=== PATIENT | female | born 1960 | race Caucasian/White ===

== ENCOUNTER 2024-09-20 10:48 | Inpatient (IN) | payer OTHER, MEDICARE ==
[~2024-09-20] VITALS: Ht 167.6 cm; Wt 100.8 kg
[2024-09-20] VITALS (22 sets, daily range): BP systolic 135–170; BP diastolic 60–94; PULSE 105–117; RESP 18–30; TEMP 95.3–99; O2SAT 96–100
[2024-09-20 11:44] LABS: BASOPHILS # (AUTO) 0.2 (0.0-0.1); BASOPHILS % 1.2 % (0.0-1.0); EOSINOPHILS % 0.1 % (0.0-6.0); HEMATOCRIT 50.9 % (34.2-44.1); LYMPHOCYTES # (AUTO) 3.6 (1.0-3.2); LYMPHOCYTES % 22.4 % (18.0-39.1); MEAN CORPUSCULAR HEMOGLOBIN 32.7 pg (28-32); MEAN CORPUSCULAR HGB CONC 31.4 g/dL (31-35); MEAN CORPUSCULAR VOLUME 104.1 fL (81-99); MONOCYTES # (AUTO) 0.8 (0.2-0.8); MONOCYTES % 4.7 % (4.4-11.3); NEUTROPHILS # (AUTO) 10.4 (2.1-6.9); PLATELET COUNT 363 x10e3/uL (140-360); RED BLOOD COUNT 4.89 x10e6/uL (3.6-5.1); RED CELL DISTRIBUTION WIDTH 12.1 % (11.7-14.4); WHITE BLOOD COUNT 15.97 x10e3/uL (4.8-10.8)
[2024-09-20 12:24] LABS: CORONAVIRUS COVID-19 AG NEGATIVE (NEGATIVE); INFLUENZA A AG NEGATIVE (NEGATIVE); INFLUENZA B AG NEGATIVE (NEGATIVE)
[2024-09-20] MEDS: LACTATED RINGER'S 1,000 ML INJ ONE ×2 (12:32→13:04)
[2024-09-20 12:44] LABS: ALANINE AMINOTRANSFERASE 17 IU/L (0-55); ALBUMIN 3.8 g/dL (3.5-5.0); ALBUMIN/GLOBULIN RATIO 1.1 (0.8-2.0); ALKALINE PHOSPHATASE 162 IU/L (40-150); BILIRUBIN,TOTAL 0.2 mg/dL (0.2-1.2); BLOOD UREA NITROGEN 24 mg/dL (7-26); BUN/CREATININE RATIO 13 (6-25); CALCIUM 9.2 mg/dL (8.4-10.2); CHLORIDE 103 mmol/L (98-107); CREATININE, SERUM 1.79 mg/dL (0.57-1.11); EST GLOMERULAR FILTRATION RATE 31 ML/MIN (>=60); POTASSIUM 4.8 mmol/L (3.5-5.1); SODIUM 132 mmol/L (136-145); TOTAL PROTEIN 7.4 g/dL (6.5-8.1)
[2024-09-20 12:48] LABS: ANION GAP 28.8 mmol/L (8-16)
[2024-09-20 12:49] LABS: CARBON DIOXIDE < 5 mmol/L (22-29); GLUCOSE 614 mg/dL (74-118)
[2024-09-20] MEDS ORDERED: MAGNESIUM SULF 1GRAM/DEXTROSE 100 ML IV PRN (13:00)
[2024-09-20] MEDS: DEXTROSE 5%/0.45% SOD CHL 1,000 ML IV SCH (13:00)
[2024-09-20 13:01] LABS: ABG PCO2 10 mmHg (35-45); ABG PH 6.92 (7.35-7.45)
[2024-09-20 13:02] LABS: ABG HCO3 2 mmol/L (22-26); ABG PO2 142 mmHg (80-105); ABG TCO2 5
[2024-09-20] MEDS: INSULIN REGULAR, HUMAN 100 UNIT/1 ML IV ONE (13:03)
[2024-09-20] MEDS: CEFEPIME 2 GM in SODIUM CHLORIDE 0.9% 100 ML IV SCH (13:04)
[2024-09-20 13:30] LABS: CLARITY,URINE CLOUDY (CLEAR); COLOR,URINE YELLOW (YELLOW); LEUKOCYTE ESTERASE ,URINE TRACE (NEGATIVE); PH,URINE 5 (5 - 7)
[2024-09-20 13:31] LABS: BILIRUBIN,URINE SMALL (NEGATIVE); GLUCOSE, URINE 500 (NEGATIVE); KETONES,URINE >=160 (NEGATIVE); NITRITE,URINE NEGATIVE (NEGATIVE); PROTEIN,URINE DIPSTICK 2+ (NEGATIVE); URINE UROBILINOGEN 0.2 mg/dL (0.2 - 1)
[2024-09-20] MEDS: SODIUM CHLORIDE 0.9% 1000ML 1,000 ML IV SCH (13:35)
[2024-09-20] MEDS: SODIUM BICARBONATE 8.4% INJ 50 ML SYR IV STA (13:35)
[2024-09-20] MEDS: INSULIN REGULAR, HUMAN 3ML VL 100 UNIT in SODIUM CHLORIDE 0.9% 99 ML IV SCH (13:36)
[2024-09-20 13:41] LABS: BACTERIA,URINE FEW /HPF; EPITHELIAL CELLS,URINE MODERATE /LPF
[2024-09-20 13:42] LABS: YEAST,URINE MODERATE
[2024-09-20 15:11] LABS: BLOOD UREA NITROGEN 24 mg/dL (7-26); BUN/CREATININE RATIO 15 (6-25); CHLORIDE 105 mmol/L (98-107); CREATININE, SERUM 1.55 mg/dL (0.57-1.11); EST GLOMERULAR FILTRATION RATE 37 ML/MIN (>=60); POTASSIUM 4.1 mmol/L (3.5-5.1); SODIUM 137 mmol/L (136-145)
[2024-09-20 15:15] LABS: ANION GAP 31.1 mmol/L (8-16)
[2024-09-20 15:16] LABS: CARBON DIOXIDE < 5 mmol/L (22-29); GLUCOSE 501 mg/dL (74-118)
[2024-09-20 15:25] LABS: ABG HCO3 3 mmol/L (22-26); ABG PCO2 11 mmHg (35-45); ABG PH 6.97 (7.35-7.45); ABG PO2 145 mmHg (80-105); ABG TCO2 < 5
[2024-09-20 15:52] LABS: FREE T4 (FREE THYROXINE) 0.81 ng/dL (0.8-1.8); THYROID STIMULATING HORMONE 0.829 uIU/mL (0.350-4.940)
[2024-09-20] MEDS: POTASSIUM CHLORIDE 10MEQ/100ML 100 ML IV SCH (17:07)
[2024-09-20 21:03] LABS: ANION GAP 22.5 mmol/L (8-16); CALCIUM 8.8 mg/dL (8.4-10.2); CREATININE, SERUM 1.47 mg/dL (0.57-1.11); POTASSIUM 3.5 mmol/L (3.5-5.1)
[2024-09-20 21:16] LABS: ABG HCO3 6 mmol/L (22-26); ABG PCO2 16 mmHg (35-45); ABG PH 7.18 (7.35-7.45); ABG PO2 98 mmHg (80-105); ABG TCO2 7
[2024-09-20] MEDS: POTASSIUM CHLORIDE 20MEQ/100ML 100 ML IV ONE (21:42)
[2024-09-20] MEDS: HEPARIN SOD (PORCINE) 5,000 UNIT/ML VIAL SC SCH (21:43)
[2024-09-20] MEDS: ONDANSETRON HCL INJ 2MG/ML 2ML 2 MG/ML VIAL IV PRN (23:52)
[2024-09-21] VITALS (56 sets, daily range): BP systolic 106–167; BP diastolic 53–93; PULSE 80–164; RESP 14–28; TEMP 98.3–99.6; O2SAT 90–100
[2024-09-21] MEDS: MAGNESIUM SULFATE 2GM/50ML 50 ML IV ONE (00:45)
[2024-09-21] MEDS: POTASSIUM CHLORIDE 20MEQ/100ML 100 ML IV ONE ×2 (01:15→04:35)
[2024-09-21 01:27] LABS: ANION GAP 19.4 mmol/L (8-16); CREATININE, SERUM 1.36 mg/dL (0.57-1.11)
[2024-09-21 01:36] LABS: POTASSIUM 3.4 mmol/L (3.5-5.1)
[2024-09-21 04:33] LABS: ANION GAP 13.3 mmol/L (8-16); CALCIUM 8.4 mg/dL (8.4-10.2); CREATININE, SERUM 1.16 mg/dL (0.57-1.11); MAGNESIUM 2.4 MG/DL (1.3-2.1)
[2024-09-21] MEDS: METOPROLOL TARTRATE INJ 1 MG/ML VIAL IV ONE ×2 (04:38→05:29)
[2024-09-21 04:39] LABS: POTASSIUM 3.3 mmol/L (3.5-5.1)
[2024-09-21 06:23] LABS: BASOPHILS % 0.2 % (0.0-1.0); HEMATOCRIT 42.3 % (34.2-44.1); HEMOGLOBIN 14.5 g/dL (12.0-16.0); LYMPHOCYTES # (AUTO) 1.7 (1.0-3.2); MEAN CORPUSCULAR HGB CONC 34.3 g/dL (31-35); MEAN CORPUSCULAR VOLUME 96.4 fL (81-99); MONOCYTES # (AUTO) 1.7 (0.2-0.8); NEUTROPHILS # (AUTO) 10.5 (2.1-6.9); NEUTROPHILS % 74.8 % (38.7-80.0); PLATELET COUNT 252 x10e3/uL (140-360); RED BLOOD COUNT 4.39 x10e6/uL (3.6-5.1); RED CELL DISTRIBUTION WIDTH 11.8 % (11.7-14.4); WHITE BLOOD COUNT 14.11 x10e3/uL (4.8-10.8)
[2024-09-21 06:52] LABS: ANION GAP 11.4 mmol/L (8-16); CALCIUM 8.4 mg/dL (8.4-10.2); CREATININE, SERUM 1.09 mg/dL (0.57-1.11); MAGNESIUM 2.3 MG/DL (1.3-2.1)
[2024-09-21 06:55] LABS: POTASSIUM 3.4 mmol/L (3.5-5.1)
[2024-09-21] MEDS ORDERED: METOPROLOL TARTRATE 25 MG TAB PO SCH (07:30)
[2024-09-21] MEDS: INSULIN REGULAR, HUMAN 3ML VL 100 UNIT in SODIUM CHLORIDE 0.9% 99 ML IV SCH (08:13)
[2024-09-21] MEDS: POTASSIUM PHOSPHATE 40 MM in SODIUM CHLORIDE 0.9% 500ML 500 ML IV ONE (08:29)
[2024-09-21] MEDS: POTASSIUM CHLORIDE 20MEQ/100ML 100 ML IV SCH (08:46)
[2024-09-21] MEDS ORDERED: INSULIN GLARGINE 100 UNITS/ML VIAL SQ SCH (09:00)
[2024-09-21] MEDS: HYDRALAZINE HCL 20 MG/ML VIAL IV PRN (12:34)
[2024-09-21 18:15] LABS: ANION GAP 12.6 mmol/L (8-16); CALCIUM 8.1 mg/dL (8.4-10.2); CREATININE, SERUM 0.92 mg/dL (0.57-1.11); MAGNESIUM 1.9 MG/DL (1.3-2.1); POTASSIUM 3.6 mmol/L (3.5-5.1)
[2024-09-21] MEDS ORDERED: IOPAMIDOL 370 MG/ML 100 ML INFUS..BTL INJ ONE (19:25)
[2024-09-21 20:25] LABS: BILIRUBIN,URINE NEGATIVE (NEGATIVE); CLARITY,URINE TURBID (CLEAR); COLOR,URINE RED (YELLOW); GLUCOSE, URINE 1+ (NEGATIVE); KETONES,URINE TRACE (NEGATIVE); LEUKOCYTE ESTERASE ,URINE SMALL (NEGATIVE); NITRITE,URINE NEGATIVE (NEGATIVE); PH,URINE 6 (5 - 7); PROTEIN,URINE DIPSTICK 2+ (NEGATIVE); URINE UROBILINOGEN 0.2 mg/dL (0.2 - 1)
[2024-09-21 20:38] LABS: BACTERIA,URINE RARE /HPF; RBC,URINE >50 /HPF (0-5); WBC,URINE (MAN) 0-5 /HPF (0-5)
[2024-09-21] MEDS: POLYETHYLENE GLYCOL 3350 17 GM PACK PO SCH (22:11)
[2024-09-22] VITALS (43 sets, daily range): BP systolic 122–169; BP diastolic 58–79; PULSE 85–104; RESP 14–25; TEMP 98.9–100; O2SAT 91–100
[2024-09-22 06:02] LABS: BASOPHILS % 0.1 % (0.0-1.0); EOSINOPHILS % 0.1 % (0.0-6.0); HEMATOCRIT 39.9 % (34.2-44.1); HEMOGLOBIN 13.7 g/dL (12.0-16.0); LYMPHOCYTES # (AUTO) 1.4 (1.0-3.2); LYMPHOCYTES % 12.2 % (18.0-39.1); MEAN CORPUSCULAR HEMOGLOBIN 32.9 pg (28-32); MEAN CORPUSCULAR HGB CONC 34.3 g/dL (31-35); MEAN CORPUSCULAR VOLUME 95.9 fL (81-99); MONOCYTES # (AUTO) 1.2 (0.2-0.8); MONOCYTES % 10.2 % (4.4-11.3); NEUTROPHILS # (AUTO) 8.6 (2.1-6.9); NEUTROPHILS % 76.7 % (38.7-80.0); PLATELET COUNT 192 x10e3/uL (140-360); RED BLOOD COUNT 4.16 x10e6/uL (3.6-5.1); RED CELL DISTRIBUTION WIDTH 12.2 % (11.7-14.4); WHITE BLOOD COUNT 11.24 x10e3/uL (4.8-10.8)
[2024-09-22 06:41] LABS: CALCIUM 8.3 mg/dL (8.4-10.2); CREATININE, SERUM 0.79 mg/dL (0.57-1.11); MAGNESIUM 1.8 MG/DL (1.3-2.1)
[2024-09-22 06:43] LABS: ABG HCO3 6 mmol/L (22-26); ABG PCO2 16 mmHg (35-45); ABG PH 7.18 (7.35-7.45); ABG PO2 98 mmHg (80-105); ABG TCO2 7
[2024-09-22 06:43] LABS: ABG HCO3 3 mmol/L (22-26); ABG PCO2 11 mmHg (35-45); ABG PH 6.97 (7.35-7.45); ABG PO2 145 mmHg (80-105); ABG TCO2 < 5
[2024-09-22 06:43] LABS: ABG BASE EXCESS < -30.0 mmol/L (-2 - 3); ABG HCO3 2 mmol/L (22-26); ABG PCO2 10 mmHg (35-45); ABG PH 6.92 (7.35-7.45); ABG PO2 142 mmHg (80-105); ABG TCO2 < 5
[2024-09-22] MEDS: POTASSIUM CHLORIDE 20MEQ/100ML 200 ML IV PRN (06:48)
[2024-09-22] MEDS: POTASSIUM CHLORIDE 20MEQ/100ML 100 ML ONE (06:53)
[2024-09-22] MEDS: POTASSIUM CHLORIDE 20MEQ/100ML 100 ML IV SCH (07:53)
[2024-09-22] MEDS: PANTOPRAZOLE SODIUM 20 MG TABLET.DR PO SCH (10:55)
[2024-09-22] MEDS: GABAPENTIN 300 MG CAP PO SCH (10:55)
[2024-09-22] MEDS: FLUCONAZOLE 100 MG TAB PO SCH (10:55)
[2024-09-22] MEDS: INSULIN GLARGINE 100 UNITS/ML VIAL SQ SCH (10:57)
[2024-09-22 11:10] LABS: ANION GAP 14.4 mmol/L (8-16); CALCIUM 8.5 mg/dL (8.4-10.2); CREATININE, SERUM 0.78 mg/dL (0.57-1.11); MAGNESIUM 1.8 MG/DL (1.3-2.1)
[2024-09-22 11:15] LABS: POTASSIUM 3.4 mmol/L (3.5-5.1)
[2024-09-22] MEDS: METOCLOPRAMIDE HCL 10 MG/2ML VIAL IV ONE (11:26)
[2024-09-22] MEDS: MAGNESIUM SULFATE 2GM/50ML 50 ML IV ONE (12:09)
[2024-09-22 15:33] LABS: ANION GAP 9.5 mmol/L (8-16); CALCIUM 8.3 mg/dL (8.4-10.2); CREATININE, SERUM 0.69 mg/dL (0.57-1.11); MAGNESIUM 2.4 MG/DL (1.3-2.1); POTASSIUM 3.5 mmol/L (3.5-5.1)
[2024-09-22] MEDS: INSULIN REGULAR, HUMAN 3ML VL 100 UNIT in SODIUM CHLORIDE 0.9% 99 ML IV SCH (21:00)
[2024-09-23] VITALS (39 sets, daily range): BP systolic 141–158; BP diastolic 64–85; PULSE 81–103; RESP 16–27; TEMP 98.3–99.8; O2SAT 94–98
[2024-09-23 06:25] LABS: BASOPHILS % 0.3 % (0.0-1.0); EOSINOPHILS # (AUTO) 0.1 (0.0-0.4); EOSINOPHILS % 0.7 % (0.0-6.0); HEMATOCRIT 36.3 % (34.2-44.1); HEMOGLOBIN 12.1 g/dL (12.0-16.0); LYMPHOCYTES # (AUTO) 2.1 (1.0-3.2); LYMPHOCYTES % 30.3 % (18.0-39.1); MEAN CORPUSCULAR HEMOGLOBIN 32.7 pg (28-32); MEAN CORPUSCULAR HGB CONC 33.3 g/dL (31-35); MEAN CORPUSCULAR VOLUME 98.1 fL (81-99); MONOCYTES # (AUTO) 0.6 (0.2-0.8); MONOCYTES % 8.5 % (4.4-11.3); NEUTROPHILS # (AUTO) 4.2 (2.1-6.9); NEUTROPHILS % 59.3 % (38.7-80.0); PLATELET COUNT 180 x10e3/uL (140-360); RED CELL DISTRIBUTION WIDTH 12.6 % (11.7-14.4); WHITE BLOOD COUNT 7.02 x10e3/uL (4.8-10.8)
[2024-09-23 07:06] LABS: ANION GAP 7.8 mmol/L (8-16); CALCIUM 7.7 mg/dL (8.4-10.2); CREATININE, SERUM 0.73 mg/dL (0.57-1.11); MAGNESIUM 2.1 MG/DL (1.3-2.1)
[2024-09-23 07:07] LABS: POTASSIUM 2.8 mmol/L (3.5-5.1)
[2024-09-23] MEDS ORDERED: DEXTROSE 50% SYRINGE 50 ML IV PRN (07:45)
[2024-09-23] MEDS: INSULIN GLARGINE 100 UNITS/ML VIAL SQ SCH (08:43)
[2024-09-23] MEDS: POTASSIUM CHLORIDE 10MEQ EA PO ONE (09:10)
[2024-09-23] MEDS: POTASSIUM CHLORIDE 20MEQ/100ML 200 ML ONE (09:43)
[2024-09-23] MEDS: POLYETHYLENE GLYCOL 3350 17 GM PACK PO SCH (10:24)
[2024-09-23] MEDS: INSULIN REGULAR, HUMAN 100 UNIT/1 ML SQ SCH (12:02)
[2024-09-23] MEDS: POTASSIUM CHLORIDE 20MEQ/100ML 200 ML IV ONE (17:16)
[2024-09-23 19:57] LABS: ANION GAP 11.2 mmol/L (8-16); CALCIUM 8.6 mg/dL (8.4-10.2); CREATININE, SERUM 0.73 mg/dL (0.57-1.11); POTASSIUM 4.2 mmol/L (3.5-5.1)
[2024-09-23] MEDS: CRESTOR 10MG PO SCH (21:10)
[2024-09-24] VITALS (8 sets, daily range): BP systolic 131–157; BP diastolic 65–85; PULSE 85–104; RESP 18–20; TEMP 97.7–98.7; O2SAT 92–100
[2024-09-24 06:30] LABS: BASOPHILS % 0.3 % (0.0-1.0); EOSINOPHILS # (AUTO) 0.1 (0.0-0.4); EOSINOPHILS % 1.4 % (0.0-6.0); HEMATOCRIT 36.7 % (34.2-44.1); HEMOGLOBIN 12.6 g/dL (12.0-16.0); LYMPHOCYTES # (AUTO) 2.2 (1.0-3.2); LYMPHOCYTES % 30.6 % (18.0-39.1); MEAN CORPUSCULAR HEMOGLOBIN 32.8 pg (28-32); MEAN CORPUSCULAR HGB CONC 34.3 g/dL (31-35); MEAN CORPUSCULAR VOLUME 95.6 fL (81-99); MONOCYTES # (AUTO) 0.6 (0.2-0.8); MONOCYTES % 8.3 % (4.4-11.3); NEUTROPHILS # (AUTO) 4.1 (2.1-6.9); NEUTROPHILS % 57.6 % (38.7-80.0); PLATELET COUNT 190 x10e3/uL (140-360); RED BLOOD COUNT 3.84 x10e6/uL (3.6-5.1); RED CELL DISTRIBUTION WIDTH 12.8 % (11.7-14.4); WHITE BLOOD COUNT 7.13 x10e3/uL (4.8-10.8)
[2024-09-24 07:04] LABS: ALBUMIN 2.6 g/dL (3.5-5.0); ALBUMIN/GLOBULIN RATIO 1.1 (0.8-2.0); ANION GAP 12.9 mmol/L (8-16); BILIRUBIN,TOTAL 0.5 mg/dL (0.2-1.2); CALCIUM 8.7 mg/dL (8.4-10.2); CREATININE, SERUM 0.69 mg/dL (0.57-1.11); POTASSIUM 3.9 mmol/L (3.5-5.1); TOTAL PROTEIN 4.9 g/dL (6.5-8.1)
[2024-09-24] MEDS: INSULIN REGULAR, HUMAN 100 UNIT/1 ML SQ SCH (11:54)
[2024-09-24] MEDS: ENOXAPARIN SOD INJ 40 MG/0.4 ML SYR SC SCH (16:53)
[2024-09-25 03:13] VITALS: BP 157/71; PULSE 86; RESP 18; TEMP 98.3; O2SAT 95
[2024-09-25 05:42] LABS: BASOPHILS # (AUTO) 0.1 (0.0-0.1); BASOPHILS % 0.5 % (0.0-1.0); EOSINOPHILS # (AUTO) 0.1 (0.0-0.4); EOSINOPHILS % 1.4 % (0.0-6.0); HEMATOCRIT 38.5 % (34.2-44.1); HEMOGLOBIN 12.7 g/dL (12.0-16.0); LYMPHOCYTES # (AUTO) 3.3 (1.0-3.2); LYMPHOCYTES % 35.9 % (18.0-39.1); MEAN CORPUSCULAR HEMOGLOBIN 32.9 pg (28-32); MEAN CORPUSCULAR VOLUME 99.7 fL (81-99); MONOCYTES # (AUTO) 0.9 (0.2-0.8); MONOCYTES % 9.6 % (4.4-11.3); NEUTROPHILS # (AUTO) 4.5 (2.1-6.9); NEUTROPHILS % 48.5 % (38.7-80.0); PLATELET COUNT 171 x10e3/uL (140-360); RED BLOOD COUNT 3.86 x10e6/uL (3.6-5.1); RED CELL DISTRIBUTION WIDTH 12.3 % (11.7-14.4); WHITE BLOOD COUNT 9.23 x10e3/uL (4.8-10.8)
[2024-09-25 06:03] LABS: ALBUMIN 2.7 g/dL (3.5-5.0); ANION GAP 13.4 mmol/L (8-16); BILIRUBIN,TOTAL 0.4 mg/dL (0.2-1.2); CALCIUM 9.4 mg/dL (8.4-10.2); CREATININE, SERUM 0.67 mg/dL (0.57-1.11); MAGNESIUM 1.9 MG/DL (1.3-2.1); TOTAL PROTEIN 5.3 g/dL (6.5-8.1)
[2024-09-25 06:05] LABS: POTASSIUM 3.4 mmol/L (3.5-5.1)
[2024-09-25 06:41] VITALS: BP 163/76; PULSE 87; RESP 18; TEMP 97.9; O2SAT 97
[2024-09-25 07:53] VITALS: BP 163/76; PULSE 87; RESP 18; TEMP 97.9; O2SAT 97
[2024-09-25 08:44] VITALS: BP 157/81; PULSE 79; RESP 20; TEMP 98.2; O2SAT 97
[2024-09-25] MEDS ORDERED: ROSUVASTATIN CA10 MG PO (11:16)
[2024-09-25] MEDS ORDERED: PANTOPRAZOLE SO20 MG PO (11:16)
[2024-09-25] MEDS ORDERED: INSULIN PEN NE1 EAC1 SC (11:16)
[2024-09-25] MEDS ORDERED: FLUCONAZOLE200 MG PO (11:16)
[2024-09-25] MEDS ORDERED: TRESIBA FL100 UNIT/1 SC (11:16)
[2024-09-25] MEDS ORDERED: INSULIN AS100 UNIT/3 SC (11:16)
[2024-09-25 11:37] VITALS: BP_SYST 153; BP_SYST 157; BP_SYST 161; BP_DIAS 75; BP_DIAS 76
[2024-09-25] MEDS ORDERED: ONDANSETRON HCL 4 MG ORAL DISINTEGRATING TAB PO PRN (12:15)
[2024-09-25 12:20] VITALS: BP 179/76; PULSE 92; RESP 20; TEMP 98.2; O2SAT 96
== END 2024-09-25 14:54 | disposition home or self-care (01) | DRG 638 ==
LOC: ER 11:12 → ERHOLD 13:10 → ICU 13:38 → MED/SURG3 09-23 13:15
PROVIDERS: ADMIT Family Medicine Adult Medicine; ATTEND Family Medicine Adult Medicine
PROC: 4A133R1 Monitoring of Arterial Saturation, Peripheral, Percutaneous Approach (ICD-10-PCS; principal; 2024-09-20)
PROC: 02HV33Z Insertion of Infusion Device into Superior Vena Cava, Percutaneous Approach (ICD-10-PCS; 2024-09-20)
DX: E11.10 Type 2 diabetes mellitus with ketoacidosis without coma (principal); B37.49 Other urogenital candidiasis; J81.1 Chronic pulmonary edema; N17.9 Acute kidney failure, unspecified; I16.0 Hypertensive urgency; K29.80 Duodenitis without bleeding; I11.9 Hypertensive heart disease without heart failure; E86.0 Dehydration; N30.90 Cystitis, unspecified without hematuria; R55 Syncope and collapse; R09.89 Other specified symptoms and signs involving the circulatory and respiratory systems; R53.81 Other malaise; R91.1 Solitary pulmonary nodule; R00.0 Tachycardia, unspecified; Z11.52 Encounter for screening for COVID-19; E66.9 Obesity, unspecified; Z68.32 Body mass index [BMI] 32.0-32.9, adult; T38.3X6A Underdosing of insulin and oral hypoglycemic [antidiabetic] drugs, initial encounter; Z91.128 Patient's intentional underdosing of medication regimen for other reason; Z88.0 Allergy status to penicillin; Z88.1 Allergy status to other antibiotic agents
CPT/HCPCS: 36415; 36569; 36600; 51700; 70450; 71045; 71260; 74177; 80048; 80053; 80061; 81001; 82805; 82948; 83036; 83605; 83735; 83880; 84100; 84439; 84443; 84484; 85025; 87040; 87086; 93005; 94799; 96365; 96366; 99252; 99285; J0360; J0692; J1644; J1650; J1815; J2405; J3475; J3480; J7030; J7040; J7050; Q9967

== ENCOUNTER 2024-10-05 02:50 | Emergency (ER) | payer OTHER ==
[~2024-10-05] VITALS: Ht 167.6 cm; Wt 100.7 kg
[~2024-10-05 02:50] MED LIST: FLUCONAZOLE200 MG PO; INSULIN AS100 UNIT/3 SC; INSULIN PEN NE1 EAC1 SC; PANTOPRAZOLE SO20 MG PO; ROSUVASTATIN CA10 MG PO; TRESIBA FL100 UNIT/1 SC
[2024-10-05 03:03] VITALS: PULSE 87; RESP 18; TEMP 98.7
[2024-10-05 03:19] LABS: BASOPHILS # (AUTO) 0.1 (0.0-0.1); BASOPHILS % 0.9 % (0.0-1.0); EOSINOPHILS # (AUTO) 0.1 (0.0-0.4); EOSINOPHILS % 1.7 % (0.0-6.0); HEMOGLOBIN 10.5 g/dL (12.0-16.0); LYMPHOCYTES # (AUTO) 1.8 (1.0-3.2); MEAN CORPUSCULAR HEMOGLOBIN 32.2 pg (28-32); MEAN CORPUSCULAR HGB CONC 30.9 g/dL (31-35); MEAN CORPUSCULAR VOLUME 104.3 fL (81-99); MONOCYTES # (AUTO) 0.4 (0.2-0.8); MONOCYTES % 7.2 % (4.4-11.3); NEUTROPHILS # (AUTO) 3.3 (2.1-6.9); NEUTROPHILS % 57.9 % (38.7-80.0); PLATELET COUNT 291 x10e3/uL (140-360); RED BLOOD COUNT 3.26 x10e6/uL (3.6-5.1); RED CELL DISTRIBUTION WIDTH 12.1 % (11.7-14.4); WHITE BLOOD COUNT 5.72 x10e3/uL (4.8-10.8)
[2024-10-05 03:41] LABS: ALBUMIN 2.8 g/dL (3.5-5.0); ALBUMIN/GLOBULIN RATIO 0.8 (0.8-2.0); ANION GAP 13.7 mmol/L (8-16); BILIRUBIN,TOTAL 0.3 mg/dL (0.2-1.2); CALCIUM 8.9 mg/dL (8.4-10.2); CREATININE, SERUM 0.82 mg/dL (0.57-1.11); POTASSIUM 3.7 mmol/L (3.5-5.1); TOTAL PROTEIN 6.1 g/dL (6.5-8.1)
[2024-10-05 03:47] LABS: TROPONIN I 0.006 ng/mL (0-0.300)
[2024-10-05] MEDS ORDERED: LASIX20 MG PO (03:57)
[2024-10-05] MEDS ORDERED: FUROSEMIDE INJ 10 MG/ML 2 ML VIAL ONE (04:00)
[2024-10-05] MEDS ORDERED: FUROSEMIDE INJ 10 MG/ML 4 ML VIAL ONE (04:00)
[2024-10-05] MEDS: FUROSEMIDE INJ 10 MG/ML 4 ML VIAL IV ONE (04:04)
[2024-10-05 04:39] VITALS: BP 172/78; PULSE 75; RESP 12; TEMP 98.3; O2SAT 94
== END 2024-10-05 04:50 | disposition home or self-care (01) ==
LOC: ER 02:55
DX: R06.02 Shortness of breath (principal); J81.1 Chronic pulmonary edema; I10 Essential (primary) hypertension; E11.65 Type 2 diabetes mellitus with hyperglycemia; R94.31 Abnormal electrocardiogram [ECG] [EKG]
CPT/HCPCS: 36415; 71045; 80053; 83880; 84484; 85025; 93005; 99284; J1940

== ENCOUNTER → 2024-10-27 | Outpatient (REF) | payer OTHER ==
[~2024-10-27] MED LIST changes: +LASIX20 MG PO
== END ==
LOC: RAD 10:57
PROVIDERS: ATTEND Family Medicine Adult Medicine
DX: J90 Pleural effusion, not elsewhere classified (principal)
CPT/HCPCS: 93306

== ENCOUNTER → 2024-11-04 | Outpatient (RCR) | payer OTHER | LOC: PT 10-28 11:15 | PROVIDERS: ATTEND Family Medicine Adult Medicine | DX: R53.1 Weakness (principal) ==

== ENCOUNTER 2024-11-25 13:49 | Outpatient (RCR) | payer OTHER | END 2024-12-02 | LOC: PT 13:49 | PROVIDERS: ATTEND Family Medicine Adult Medicine | DX: R53.1 Weakness (principal) ==